=== PATIENT | male | born 1945 | race Caucasian/White ===

== ENCOUNTER 2022-07-03 07:25 | Emergency (ER) | payer MEDICARE, SELFPAY ==
[2022-07-03] VITALS (40 sets, daily range): BP systolic 79–150; BP diastolic 59–118; PULSE 53–82; RESP 20; TEMP 36.1–36.3; O2SAT 93–99; BMI 25.1
--- NOTE | 2022-07-03 07:48 | CRLHL7_ITS ---
For Patients: As a result of the Century Cures Act, medical imaging exams and procedure reports are released immediately into your electronic medical record. You may view this report before your referring provider. If you have questions, please contact your health care provider. INDICATION: Left anterior chest pain COMPARISON: None TECHNIQUE: PA and lateral views of the chest were acquired FINDINGS: TUBES AND LINES: None. HEART AND MEDIASTINUM: The heart size is normal. The mediastinal contour appears normal for patient age. LUNGS AND PLEURAL SPACES: The lungs appear normal.The pleural spaces are unremarkable. OSSEOUS STRUCTURES: Age-appropriate appearance. No acute focal finding. IMPRESSION: No evidence of active pulmonary disease. Dictated by Tapan Castillo MD @ 07/03/2022 8:13:55 AM (Electronically Signed)
--- NOTE | 2022-07-03 07:50 | ED_ITS ---
HPI - General Adult General Chief complaint: Chest Pain <Gladis Maki MD - Last Filed: 07/03/22 08:03> Stated complaint: Chest pain <Gldais Maki MD - Last Filed: 07/03/22 08:03> Time Seen by Provider: 07/03/22 07:38 <Gladis Maki MD - Last Filed: 07/03/22 08:03> Source: patient <Gladis Maki MD - Last Filed: 07/03/22 08:03> Mode of arrival: ambulatory <Gladis Maki MD - Last Filed: 07/03/22 08:03> Limitations: no limitations <Gladis Maki MD - Last Filed: 07/03/22 08:03> History of Present Illness HPI narrative: 76-year-old male with no significant past medical history presents with a 4+ hour history of chest pain to the left anterior chest, starting at rest. Does not worsen with movement. Is worsened by taking a deep breath. There is no dyspnea. Chest pain does not radiate. Feels like it is located deep in the chest. He is concerned it could be related to his heart. He has no personal history of heart disease, but has never had a stress test or significant cardiac workup. There is no nausea, no epigastric pain, no heartburn fevers or recent trauma. He has not tried any interventions, Tylenol, antacids or other steps to help with his pain. Pain is constant, has not waxed and waned. No prior hist ory of similar symptoms. He is not sure if it is related but he had a fall while working in his shop in April, tripped over a piece of wood and fell forward, his cell phone was in his left anterior chest pocket and cracked, seem to push into his ribs and cause some tenderness. Tenderness lasted about a week, he did not seek medical care. About a month later he was walking backwards in his shop in tripped over a blade on the back of a tractor, falling over it and onto the ground. He did not notice any significant injury from this accident either did not have back or rib pain as a result. On specific questioning, I asked him about an irregular heart rate as I note bigeminy on the EKG that his nurse brought me. He states that he was told that he had this over a year ago when he had a physical done by a nurse that came to his house. I assume this was for insurance purposes. He has not had this evaluated further. He said that she was not overly concerned. He is a nonsmoker. No history of diabetes, hypertension or hyperlipidemia but admits that he does not seek medical care often. No aspirin or anticoagulants. Past medical history he states is benign, no major long-term health problems. He does have a family history of cardiac disease. He denies any recent surgeries. No prescription medications, no allergies. Socially with no illicit drug use, no tobacco. ROS is notable for the chest symptoms as above, otherwise denies times 12 systems. <Gladis Maki MD - Last Filed: 07/03/22 08:03> Related Data Home medications: Home Medications Medication Instructions Recorded Confirmed No Known Home Medications 07/03/22 07/03/22 <Gladis Maki MD - Last Filed: 07/03/22 08:03> Allergies/adverse reactions: Allergies Allergy/AdvReac Type Severity Reaction Status Date / Time tetanus and diphtheria Allergy Verified 07/03/22 07:34 toxoids <Gladis Maki MD - Last Filed: 07/03/22 08:03> [facility] Social History: Social History Smoking Status: Former smoker Do you use any of these nicotine containing products: None Second hand tobacco smoke exposure: No How often do you have a drink containing alcohol: monthly or less How often do you have six or more drinks on one occasion: Never AUDIT-C Alcohol total score: 1 Non-prescribed substance use: denies use <Gladis Maki MD - Last Filed: 07/03/22 08:03> Exam Narrative: Exam Narrative: Initial EKG came back with sinus rhythm with premature atrial complexes in a bigeminy rhythm, pulse of 60. Initial troponin was elevated at 0.1. Patient did receive aspirin upon arrival and was subsequently pain free. A repeat troponin was done was 0.08. Remainder of his lab work was unremarkable. Repeat EKG was unchanged. I did speak to Dr. Wise, cardiology at [facility], who recommended we start him on heparin and transfer him for angiogram. [facility] had no beds available, therefore we reached out to [facility]. <Deysi Ibarra MD - Last Filed: 07/03/22 11:53> Const: Vital Signs, click to edit/add: Vital Signs - 24 hr 07/03/22 07:28 07/03/22 07:44 07/03/22 07:45 Temperature 97.0 F L Pulse Rate 59 L 64 Pulse Rate [Pulse Oximeter] 64 Respiratory Rate 20 Blood Pressure Blood Pressure [Le ft Upper Arm] 134/71 Pulse Oximetry 97 97 96 Oxygen Delivery Me thod Room Air 07/03/22 08:07 07/03/22 08:12 07/03/22 08:15 Temperature Pulse Rate 56 L 58 L 56 L Pulse Rate [Pulse Oximeter] Respiratory Rate Blood Pressure 150/77 H Blood Pressure [Le ft Upper Arm] Pulse Oximetry 96 96 97 Oxygen Delivery Me thod 07/03/22 08:18 07/03/22 08:30 07/03/22 08:32 Temperature Pulse Rate 61 57 L 59 L Pulse Rate [Pulse Oximeter] Respiratory Rate Blood Pressure 123/74 132/83 Blood Pressure [Le ft Upper Arm] Pulse Oximetry 98 96 94 Oxygen Delivery Me thod 07/03/22 08:33 07/03/22 08:45 07/03/22 08:47 Temperature Pulse Rate 56 L 54 L 53 L Pulse Rate [Pulse Oximeter] Respiratory Rate Blood Pressure 126/86 Blood Pressure [Le ft Upper Arm] Pulse Oximetry 97 97 97 Oxygen Delivery Me thod 07/03/22 09:00 07/03/22 09:03 07/03/22 09:15 Temperature Pulse Rate 62 58 L 60 Pulse Rate [Pulse Oximeter] Respiratory Rate Blood Pressure 131/80 Blood Pressure [Le ft Upper Arm] Pulse Oximetry 98 94 95 Oxygen Delivery Me thod 07/03/22 09:18 07/03/22 09:30 07/03/22 09:33 Temperature Pulse Rate 60 60 61 Pulse Rate [Pulse Oximeter] Respiratory Rate Blood Pressure 133/75 125/94 H Blood Pressure [Le ft Upper Arm] Pulse Oximetry 97 97 93 Oxygen Delivery Me thod 07/03/22 09:45 07/03/22 09:51 07/03/22 10:00 Temperature Pulse Rate 59 L 59 L 58 L Pulse Rate [Pulse Oximeter] Respiratory Rate Blood Pressure 117/78 Blood Pressure [Le ft Upper Arm] Pulse Oximetry 97 96 98 Oxygen Delivery Me thod 07/03/22 10:03 07/03/22 10:15 07/03/22 10:18 Temperature Pulse Rate 56 L 72 60 Pulse Rate [Pulse Oximeter] Respiratory Rate Blood Pressure 142/85 H 111/59 L Blood Pressure [Le ft Upper Arm] Pulse Oximetry 98 96 97 Oxygen Delivery Me thod 07/03/22 10:30 07/03/22 10:33 07/03/22 10:36 Temperature Pulse Rate 67 82 65 Pulse Rate [Pulse Oximeter] Respiratory Rate Blood Pressure 79/68 L 136/76 Blood Pressure [Le ft Upper Arm] Pulse Oximetry 99 93 96 Oxygen Delivery Me thod 07/03/22 10:45 07/03/22 11:00 07/03/22 11:03 Temperature Pulse Rate 59 L 61 63 Pulse Rate [Pulse Oximeter] Respiratory Rate Blood Pressure 143/70 H Blood Pressure [Le ft Upper Arm] Pulse Oximetry 97 98 99 Oxygen Delivery Me thod 07/03/22 11:15 07/03/22 11:18 07/03/22 11:30 Temperature Pulse Rate 71 61 61 Pulse Rate [Pulse Oximeter] Respiratory Rate Blood Pressure 123/70 Blood Pressure [Le ft Upper Arm] Pulse Oximetry 97 97 98 Oxygen Delivery Me thod 07/03/22 11:33 07/03/22 11:45 07/03/22 11:47 Temperature Pulse Rate 62 65 76 Pulse Rate [Pulse Oximeter] Respiratory Rate Blood Pressure 118/80 139/118 H Blood Pressure [Le ft Upper Arm] Pulse Oximetry 97 98 96 Oxygen Delivery Me thod 07/03/22 11:51 Temperature 97.4 F L Pulse Rate Pulse Rate [Pulse Oximeter] Respiratory Rate Blood Pressure Blood Pressure [Le ft Upper Arm] Pulse Oximetry Oxygen Delivery Me thod <Gladis Maki MD - Last Filed: 07/03/22 08:03> Vital Signs, click to edit/add: Vital Signs - 24 hr 07/03/22 07:28 07/03/22 07:44 07/03/22 07:45 Temperature 97.0 F L Pulse Rate 59 L 64 Pulse Rate [Pulse Oximeter] 64 Respiratory Rate 20 Blood Pressure Blood Pressure [Le ft Upper Arm] 134/71 Pulse Oximetry 97 97 96 Oxygen Delivery Me thod Room Air 07/03/22 08:07 07/03/22 08:12 07/03/22 08:15 Temperature Pulse Rate 56 L 58 L 56 L Pulse Rate [Pulse Oximeter] Respiratory Rate Blood Pressure 150/77 H Blood Pressure [Le ft Upper Arm] Pulse Oximetry 96 96 97 Oxygen Delivery Me thod 07/03/22 08:18 07/03/22 08:30 07/03/22 08:32 Temperature Pulse Rate 61 57 L 59 L Pulse Rate [Pulse Oximeter] Respiratory Rate Blood Pressure 123/74 132/83 Blood Pressure [Le ft Upper Arm] Pulse Oximetry 98 96 94 Oxygen Delivery Me thod 07/03/22 08:33 07/03/22 08:45 07/03/22 08:47 Temperature Pulse Rate 56 L 54 L 53 L Pulse Rate [Pulse Oximeter] Respiratory Rate Blood Pressure 126/86 Blood Pressure [Le ft Upper Arm] Pulse Oximetry 97 97 97 Oxygen Delivery Me thod 07/03/22 09:00 07/03/22 09:03 07/03/22 09:15 Temperature Pulse Rate 62 58 L 60 Pulse Rate [Pulse Oximeter] Respiratory Rate Blood Pressure 131/80 Blood Pressure [Le ft Upper Arm] Pulse Oximetry 98 94 95 Oxygen Delivery Me thod 07/03/22 09:18 07/03/22 09:30 07/03/22 09:33 Temperature Pulse Rate 60 60 61 Pulse Rate [Pulse Oximeter] Respiratory Rate Blood Pressure 133/75 125/94 H Blood Pressure [Le ft Upper Arm] Pulse Oximetry 97 97 93 Oxygen Delivery Me thod 07/03/22 09:45 07/03/22 09:51 07/03/22 10:00 Temperature Pulse Rate 59 L 59 L 58 L Pulse Rate [Pulse Oximeter] Respiratory Rate Blood Pressure 117/78 Blood Pressure [Le ft Upper Arm] Pulse Oximetry 97 96 98 Oxygen Delivery Me thod 07/03/22 10:03 07/03/22 10:15 07/03/22 10:18 Temperature Pulse Rate 56 L 72 60 Pulse Rate [Pulse Oximeter] Respiratory Rate Blood Pressure 142/85 H 111/59 L Blood Pressure [Le ft Upper Arm] Pulse Oximetry 98 96 97 Oxygen Delivery Me thod 07/03/22 10:30 07/03/22 10:33 07/03/22 10:36 Temperature Pulse Rate 67 82 65 Pulse Rate [Pulse Oximeter] Respiratory Rate Blood Pressure 79/68 L 136/76 Blood Pressure [Le ft Upper Arm] Pulse Oximetry 99 93 96 Oxygen Delivery Me thod 07/03/22 10:45 07/03/22 11:00 07/03/22 11:03 Temperature Pulse Rate 59 L 61 63 Pulse Rate [Pulse Oximeter] Respiratory Rate Blood Pressure 143/70 H Blood Pressure [Le ft Upper Arm] Pulse Oximetry 97 98 99 Oxygen Delivery Me thod 07/03/22 11:15 07/03/22 11:18 07/03/22 11:30 Temperature Pulse Rate 71 61 61 Pulse Rate [Pulse Oximeter] Respiratory Rate Blood Pressure 123/70 Blood Pressure [Le ft Upper Arm] Pulse Oximetry 97 97 98 Oxygen Delivery Me thod 07/03/22 11:33 07/03/22 11:45 07/03/22 11:47 Temperature Pulse Rate 62 65 76 Pulse Rate [Pulse Oximeter] Respiratory Rate Blood Pressure 118/80 139/118 H Blood Pressure [Le ft Upper Arm] Pulse Oximetry 97 98 96 Oxygen Delivery Me thod 07/03/22 11:51 Temperature 97.4 F L Pulse Rate Pulse Rate [Pulse Oximeter] Respiratory Rate Blood Pressure Blood Pressure [Le ft Upper Arm] Pulse Oximetry Oxygen Delivery Me thod <Deysi Ibarra MD - Last Filed: 07/03/22 11:53> Documenting provider has reviewed patient's vital signs: yes <Gladis Maki MD - Last Filed: 07/03/22 08:03> Common normals: no apparent distress and alert <Gladis Maki MD - Last Filed: 07/03/22 08:03> General appearance: cooperative, comfortable and well kempt <Gladis Maki MD - Last Filed: 07/03/22 08:03> HENMT: Common normals: normocephalic and head/scalp atraumatic <Gladis Maki MD - Last Filed: 07/03/22 08:03> Head and scalp: normocephalic and atraumatic <Gladis Maki MD - Last Filed: 07/03/22 08:03> Face and sinus: normal facial exam <MD Soraya Vidales Last Filed: 07/03/22 08:03> Mouth: oral and palatal mucosa normal <MD Soraya Vidales Last Filed: 07/03/22 08:03> Throat: posterior oropharynx normal <MD Soraya Vidales Last Filed: 07/03/22 08:03> Eye: Common normals: EOMs intact bilaterally <MD Soraya Vidales Last Filed: 07/03/22 08:03> General eye: normal appearance of both eyes <MD Soraya Vidales Last Filed: 07/03/22 08:03> Neck & C-Spine: Common normals: full ROM and no lymphadenopathy <MD Soraya Vidales Last Filed: 07/03/22 08:03> Chest: Common normals: inspection of chest normal and palpation of chest normal (Cannot reproduce tenderness) <MD Soraya Vidales Last Filed: 07/03/22 08:03> Resp: Common normals: normal respiratory effort, no use of accessory muscles and clear to auscultation bilaterally <MD Soraya Vidales Last Filed: 07/03/22 08:03> Effort & inspection: able to speak in complete sentences <MD Soraya Vidales Last Filed: 07/03/22 08:03> Auscultation: clear to auscultation bilaterally <MD Soraya Vidales Last Filed: 07/03/22 08:03> Cardio: Common normals: S1 normal heart sound, S2 normal heart sound and no murmurs <MD Soraya Vidales Last Filed: 07/03/22 08:03> Heart sounds: S1 normal and S2 normal <MD Soraya Vidales Last Filed: 07/03/22 08:03> Other: Bigeminy on auscultation, rate is around 60. <MD Soraya Vidales Last Filed: 07/03/22 08:03> GI: Common normals: Normal to inspection, nondistended, normoactive bowel sounds present, soft to palpation, non-tender, no hepatosplenomegaly and no masses <MD Soraya Vidales Last Filed: 07/03/22 08:03> Palpation: soft and no hepatosplenomegaly <MD Soraya Vidales Last Filed: 07/03/22 08:03> : Common normals: no CVA tenderness <MD Soraya Vidales Last Filed: 07/03/22 08:03> Bladder/kidney exam: no CVA tenderness <MD Soraya Vidales Last Filed: 07/03/22 08:03> Back & Pelvis: Common normals: no CVA tenderness and thoracic and lumbar spine normal to inspection <MD Soraya Vidales Last Filed: 07/03/22 08:03> Extremity: Common normals: normal to inspection, normal capillary refill and no pedal edema <MD Soraya Vidales Last Filed: 07/03/22 08:03> Neuro: Common normals: moves all extremities <MD Soraya Vidales Last Filed: 07/03/22 08:03> Sensorium/orientation: alert <MD Soraya Vidales Last Filed: 07/03/22 08:03> Speech: speech normal <MD Soraya Vidales Last Filed: 07/03/22 08:03> Psych: Appearance: well kempt <MD Soraya Vidales Last Filed: 07/03/22 08:03> Attitude: engaged <MD Soraya Vidales Last Filed: 07/03/22 08:03> Mood and affect: euthymic mood <MD Soraya Vidales Last Filed: 07/03/22 08:03> Insight: insight good <MD Soraya Vidales Last Filed: 07/03/22 08:03> Judgement: judgment good <MD Soraya Vidales Last Filed: 07/03/22 08:03> Skin: Common normals: no rashes or lesions noted <MD Soraya Vidales Last Filed: 07/03/22 08:03> General skin exam: no rashes or lesions noted <Gladis Maki MD - Last Filed: 07/03/22 08:03> Course Course Hospital Course: Initial EKG, read by me, shows normal sinus rhythm and a bigeminy pattern with a pulse of 60. His initial troponin was elevated at 0.10. Sublingual nitro was not initiated given that shortly after arrival patient became asymptomatic and remain without chest pain. His repeat troponin was better at 0.08, however still elevated. Because of this I did speak to Dr. Wise, [employer] at [facility], who recommended we start the patient on heparin and transfer him for further management. There were no beds available lab [facility] so patient will be transferred to [facility] where Dr. Madden hospitalist at [place], except to the patient for transfer. Remainder of his lab work was unremarkable. His repeat EKG was unchanged. Chest x-ray, read by me, did not show any acute pathology. Patient remained asymptomatic and hemodynamically stable while here. 3rd troponin unchanged. <Gladis Maki MD - Last Filed: 07/03/22 08:03> Vital Signs Vital signs: Initial Vital Signs Temperature 97.0 F L 07/03/22 07:28 Temperature Source Temporal Artery Scan 07/03/22 07:28 Pulse Rate 64 07/03/22 07:28 Pulse Rhythm Irregular 07/03/22 07:28 Respiratory Rate 20 07/03/22 07:28 Blood Pressure 134/71 07/03/22 07:28 Blood Pressure Mean 92 07/03/22 07:28 Pulse Oximetry 97 07/03/22 07:28 Oxygen Delivery Method Room Air 07/03/22 07:28 Vital Signs Temperature 97.0 F L 07/03/22 07:28 Pulse Rate 64 07/03/22 07:28 Respiratory Rate 20 07/03/22 07:28 Blood Pressure 134/71 07/03/22 07:28 Pulse Oximetry 97 07/03/22 07:28 Oxygen Delivery Method Room Air 07/03/22 07:28 Temperature 97.4 F L 07/03/22 11:51 Pulse Rate 76 07/03/22 11:47 Respiratory Rate 20 07/03/22 07:28 Blood Pressure 139/118 H 07/03/22 11:47 Pulse Oximetry 96 07/03/22 11:47 Oxygen Delivery Method Room Air 07/03/22 07:28 <Gladis Maki MD - Last Filed: 07/03/22 08:03> Initial Vital Signs Temperature 97.0 F L 07/03/22 07:28 Temperature Source Temporal Artery Scan 07/03/22 07:28 Pulse Rate 64 07/03/22 07:28 Pulse Rhythm Irregular 07/03/22 07:28 Respiratory Rate 20 07/03/22 07:28 Blood Pressure 134/71 07/03/22 07:28 Blood Pressure Mean 92 07/03/22 07:28 Pulse Oximetry 97 07/03/22 07:28 Oxygen Delivery Method Room Air 07/03/22 07:28 Vital Signs Temperature 97.0 F L 07/03/22 07:28 Pulse Rate 64 07/03/22 07:28 Respiratory Rate 20 07/03/22 07:28 Blood Pressure 134/71 07/03/22 07:28 Pulse Oximetry 97 07/03/22 07:28 Oxygen Delivery Method Room Air 07/03/22 07:28 Temperature 97.4 F L 07/03/22 11:51 Pulse Rate 76 07/03/22 11:47 Respiratory Rate 20 07/03/22 07:28 Blood Pressure 139/118 H 07/03/22 11:47 Pulse Oximetry 96 07/03/22 11:47 Oxygen Delivery Method Room Air 07/03/22 07:28 <Deysi Ibarra MD - Last Filed: 07/03/22 11:53> Medical Decision Making MDM Narrative Medical decision making narrative: Uncertain of etiology. Differential diagnosis including coronary artery disease, structural heart disease, arrhythmia, pleurisy, pneumonia, reflux, musculoskeletal etiology among others. Patient came just a couple of minutes before shift change but I was concerned when I saw the bigeminy and elected to start the workup. I will be handing the patient over to Dr. Ibarra. EKG, chest x-ray, all basic labs ordered including troponin and point of care troponin, would recommend serial troponin as well. Will give aspirin 325 mg p.o. x1 and a trial dose of nitroglycerin to assess clinical response. <Gladis Maki MD - Last Filed: 07/03/22 08:03> Uncertain of etiology. Differential diagnosis including coronary artery disease, structural heart disease, arrhythmia, pleurisy, pneumonia, reflux, musculoskeletal etiology among others. Patient came just a couple of minutes b efore shift change but I was concerned when I saw the bigeminy and elected to start the workup. I will be handing the patient over to Dr. Ibarra. EKG, chest x-ray, all basic labs ordered including troponin and point of care troponin, would recommend serial troponin as well. Will give aspirin 325 mg p.o. x1 and a trial dose of nitroglycerin to assess clinical response. Non ST elevation PA. patient will be transferred to [place] for further management. <Deysi Ibarra MD - Last Filed: 07/03/22 11:53> Lab Data Lab results reviewed: Yes I reviewed the patient's lab results <Deysi Ibarra MD - Last Filed: 07/03/22 11:53> Labs: Lab Results 07/03/22 07/03/22 07/03/22 Range/Units 07:40 09:18 10:27 WBC 4.90 (4.50-11.00) K/uL RBC 4.40 (4.30-5.90) m/uL Hgb 14.6 (13.5-17.5) gm/dL Hct 43.0 (37.0-53.0) % MCV 98 (80-100) fL MCH 33 (26-34) pg MCHC 34 (32-36) gm/dL RDW Coeff of Rosalina 12.8 (11.5-15.5) % Plt Count 194 (140-440) K/uL Neut % (Auto) 49.0 (42.0-72.0) % Lymph % (Auto) 30.2 (20-44) % [place] % (Auto) 14.7 H (0.0-11.0) % Eos % (Auto) 5.3 (0.0-7.0) % Baso % (Auto) 0.6 (0.0-3.0) % Neut # (Auto) 2.40 (1.7-7.0) K/uL Lymph # (Auto) 1.48 (0.90-2.90) K/uL [place] # (Auto) 0.70 (0.00-0.90) K/UL Eos # (Auto) 0.26 (0.00-0.50) K/uL Baso # (Auto) 0.03 (0.00-0.30) K/uL INR 1.11 H (0.91-1.10) APTT 31 (23-33) Seconds D-Dimer Quant (PE/DVT) 0.39 (0.00-0.50) ug/ml Sodium 138 (135-149) mmol/L Potassium 4.9 (3.6-5.1) mmol/L Chloride 109 (96-114) mmol/L Carbon Dioxide 24 (20-32) mmol/L BUN 18 (7-30) mg/dL Creatinine 0.8 (0.5-1.5) mg/dL Estimated Creat Clear 66.82 Estimated GFR 91 ml/min Glucose 102 (60-115) mg/dL Calcium 8.5 (8.4-10.6) mg/dL Total Bilirubin 0.5 (0.1-1.5) mg/dL AST 34 (12-35) U/L ALT 38 (4-50) U/L Alkaline Phosphatase 41 (40-150) U/L Troponin I 0.10 H* (0.01-0.04) ng/mL C-Reactive Protein 0.8 (0.5-1.0) mg/dL NT-Pro-B Natriuret Pep 1020 pg/mL Total Protein 7.0 (6.0-8.3) g/dL Albumin 3.9 (3.3-5.0) g/dL SARS-CoV-2 (PCR) Negative SARS-CoV-2 (Negative) Influenza Type A (PCR) Negative PCR FLU A (Negative) Influenza Type B (PCR) Negative PCR FLU B (Negative) POC Troponin I 0.10 H 0.08 H (0.01-0.04) ng/ml 07/03/22 Range/Units 10:48 WBC (4.50-11.00) K/uL RBC (4.30-5.90) m/uL Hgb (13.5-17.5) gm/dL Hct (37.0-53.0) % MCV (80-100) fL MCH (26-34) pg MCHC (32-36) gm/dL RDW Coeff of Rosalina (11.5-15.5) % Plt Count (140-440) K/uL Neut % (Auto) (42.0-72.0) % Lymph % (Auto) (20-44) % [place] % (Auto) (0.0-11.0) % Eos % (Auto) (0.0-7.0) % Baso % (Auto) (0.0-3.0) % Neut # (Auto) (1.7-7.0) K/uL Lymph # (Auto) (0.90-2.90) K/uL [place] # (Auto) (0.00-0.90) K/UL Eos # (Auto) (0.00-0.50) K/uL Baso # (Auto) (0.00-0.30) K/uL INR (0.91-1.10) APTT (23-33) Seconds D-Dimer Quant (PE/DVT) (0.00-0.50) ug/ml Sodium (135-149) mmol/L Potassium (3.6-5.1) mmol/L Chloride (96-114) mmol/L Carbon Dioxide (20-32) mmol/L BUN (7-30) mg/dL Creatinine (0.5-1.5) mg/dL Estimated Creat Clear Estimated GFR ml/min Glucose (60-115) mg/dL Calcium (8.4-10.6) mg/dL Total Bilirubin (0.1-1.5) mg/dL AST (12-35) U/L ALT (4-50) U/L Alkaline Phosphatase (40-150) U/L Troponin I (0.01-0.04) ng/mL C-Reactive Protein (0.5-1.0) mg/dL NT-Pro-B Natriuret Pep pg/mL Total Protein (6.0-8.3) g/dL Albumin (3.3-5.0) g/dL SARS-CoV-2 (PCR) (Negative) Influenza Type A (PCR) (Negative) Influenza Type B (PCR) (Negative) POC Troponin I 0.08 H (0.01-0.04) ng/ml <Gladis Maki MD - Last Filed: 07/03/22 08:03> Lab Results 07/03/22 07/03/22 07/03/22 Range/Units 07:40 09:18 10:27 WBC 4.90 (4.50-11.00) K/uL RBC 4.40 (4.30-5.90) m/uL Hgb 14.6 (13.5-17.5) gm/dL Hct 43.0 (37.0-53.0) % MCV 98 (80-100) fL MCH 33 (26-34) pg MCHC 34 (32-36) gm/dL RDW Coeff of Rosalina 12.8 (11.5-15.5) % Plt Count 194 (140-440) K/uL Neut % (Auto) 49.0 (42.0-72.0) % Lymph % (Auto) 30.2 (20-44) % [place] % (Auto) 14.7 H (0.0-11.0) % Eos % (Auto) 5.3 (0.0-7.0) % Baso % (Auto) 0.6 (0.0-3.0) % Neut # (Auto) 2.40 (1.7-7.0) K/uL Lymph # (Auto) 1.48 (0.90-2.90) K/uL [place] # (Auto) 0.70 (0.00-0.90) K/UL Eos # (Auto) 0.26 (0.00-0.50) K/uL Baso # (Auto) 0.03 (0.00-0.30) K/uL INR 1.11 H (0.91-1.10) APTT 31 (23-33) Seconds D-Dimer Quant (PE/DVT) 0.39 (0.00-0.50) ug/ml Sodium 138 (135-149) mmol/L Potassium 4.9 (3.6-5.1) mmol/L Chloride 109 (96-114) mmol/L Carbon Dioxide 24 (20-32) mmol/L BUN 18 (7-30) mg/dL Creatinine 0.8 (0.5-1.5) mg/dL Estimated Creat Clear 66.82 Estimated GFR 91 ml/min Glucose 102 (60-115) mg/dL Calcium 8.5 (8.4-10.6) mg/dL Total Bilirubin 0.5 (0.1-1.5) mg/dL AST 34 (12-35) U/L ALT 38 (4-50) U/L Alkaline Phosphatase 41 (40-150) U/L Troponin I 0.10 H* (0.01-0.04) ng/mL C-Reactive Protein 0.8 (0.5-1.0) mg/dL NT-Pro-B Natriuret Pep 1020 pg/mL Total Protein 7.0 (6.0-8.3) g/dL Albumin 3.9 (3.3-5.0) g/dL SARS-CoV-2 (PCR) Negative SARS-CoV-2 (Negative) Influenza Type A (PCR) Negative PCR FLU A (Negative) Influenza Type B (PCR) Negative PCR FLU B (Negative) POC Troponin I 0.10 H 0.08 H (0.01-0.04) ng/ml 07/03/22 Range/Units 10:48 WBC (4.50-11.00) K/uL RBC (4.30-5.90) m/uL Hgb (13.5-17.5) gm/dL Hct (37.0-53.0) % MCV (80-100) fL MCH (26-34) pg MCHC (32-36) gm/dL RDW Coeff of Rosalina (11.5-15.5) % Plt Count (140-440) K/uL Neut % (Auto) (42.0-72.0) % Lymph % (Auto) (20-44) % [place] % (Auto) (0.0-11.0) % Eos % (Auto) (0.0-7.0) % Baso % (Auto) (0.0-3.0) % Neut # (Auto) (1.7-7.0) K/uL Lymph # (Auto) (0.90-2.90) K/uL [place] # (Auto) (0.00-0.90) K/UL Eos # (Auto) (0.00-0.50) K/uL Baso # (Auto) (0.00-0.30) K/uL INR (0.91-1.10) APTT (23-33) Seconds D-Dimer Quant (PE/DVT) (0.00-0.50) ug/ml Sodium (135-149) mmol/L Potassium (3.6-5.1) mmol/L Chloride (96-114) mmol/L Carbon Dioxide (20-32) mmol/L BUN (7-30) mg/dL Creatinine (0.5-1.5) mg/dL Estimated Creat Clear Estimated GFR ml/min Glucose (60-115) mg/dL Calcium (8.4-10.6) mg/dL Total Bilirubin (0.1-1.5) mg/dL AST (12-35) U/L ALT (4-50) U/L Alkaline Phosphatase (40-150) U/L Troponin I (0.01-0.04) ng/mL C-Reactive Protein (0.5-1.0) mg/dL NT-Pro-B Natriuret Pep pg/mL Total Protein (6.0-8.3) g/dL Albumin (3.3-5.0) g/dL SARS-CoV-2 (PCR) (Negative) Influenza Type A (PCR) (Negative) Influenza Type B (PCR) (Negative) POC Troponin I 0.08 H (0.01-0.04) ng/ml <Deysi Ibarra MD - Last Filed: 07/03/22 11:53> Imaging Data Chest x-ray: Attestation: I have reviewed the pertinent imaging results. <Deysi Ibarra MD - Last Filed: 07/03/22 11:53> Radiologist's impression: PA and lateral views of the chest were acquired FINDINGS: TUBES AND LINES: None. HEART AND MEDIASTINUM: The heart size is normal. The mediastinal contour appears normal for patient age. LUNGS AND PLEURAL SPACES: The lungs appear normal.The pleural spaces are unremarkable. OSSEOUS STRUCTURES: Age-appropriate appearance. No acute focal finding. IMPRESSION: No evidence of active pulmonary disease. <Deysi Ibarra MD - Last Filed: 07/03/22 11:53> ECG Data Attestation: I personally reviewed and interpreted this ECG as follows: <Gladis Maki MD - Last Filed: 07/03/22 08:03> Prior ECG tracings: not available for review <Gladis Maki MD - Last Filed: 07/03/22 08:03> Interpretation: Bigeminy pattern rate of 60. Slightly unusual axis but with no obvious ischemic change, all T-waves are appropriately upright. <Gladis Maki MD - Last Filed: 07/03/22 08:03> Discharge Plan Discharge Clinical Impression: Non-ST elevated myocardial infarction <Gladis Maki MD - Last Filed: 07/03/22 08:03> Patient Disposition: Xfer SNF <Gladis Maki MD - Last Filed: 07/03/22 08:03> Discharge Location: [facility] <Gladis Maki MD - Last Filed: 07/03/22 08:03> Condition: Stable <Gladis Maki MD - Last Filed: 07/03/22 08:03> Prescriptions: No Action No Known Home Medications <Gladis Maki MD - Last Filed: 07/03/22 08:03> Stand Alone Forms: MyHealth Info Instructions <Gladis Maki MD - Last Filed: 07/03/22 08:03>
[2022-07-03] MEDS: ASPIRIN 81 MG TAB.CHEW 324 MG PO (08:01)
[2022-07-03 08:04] LABS: Basophils Absolute Auto 0.03 K/uL (0.00-0.30); Basophils Percent Auto 0.6 % (0.0-3.0); Eosinophils Absolute Auto 0.26 K/uL (0.00-0.50); Eosinophils Percent Auto 5.3 % (0.0-7.0); Hemoglobin* 14.6 gm/dL (13.5-17.5); Immature Granulocytes Abs Auto 0.01 K/uL (0.00-0.30); Immature Granulocytes Pct Auto 0.2 %; Lymphocytes Absolute Auto 1.48 K/uL (0.90-2.90); Lymphocytes Percent Auto 30.2 % (20-44); Mean Corpuscular HGB Conc 34 gm/dL (32-36); Mean Corpuscular Hemoglobin 33 pg (26-34); Mean Corpuscular Volume 98 fL (80-100); Monocytes Percent Auto 14.7 % (0.0-11.0); Platelet Count* 194 K/uL (140-440); RDW Coefficient of Variation % 12.8 % (11.5-15.5)
[2022-07-03 08:05] LABS: Slide Review Reflex No
[2022-07-03 08:11] LABS: Chloride* 109 mmol/L (96-114)
[2022-07-03 08:12] LABS: Albumin* 3.9 g/dL (3.3-5.0); Sodium* 138 mmol/L (135-149)
[2022-07-03 08:13] LABS: Potassium* 4.9 mmol/L (3.6-5.1)
[2022-07-03 08:15] LABS: Bilirubin Total* 0.5 mg/dL (0.1-1.5); Creatinine* 0.8 mg/dL (0.5-1.5); Est. Creatinine Clearance* 66.82; Estimated Glomerular Filt Rate 91 ml/min
[2022-07-03 08:16] LABS: Alanine Aminotransferase* 38 U/L (4-50); Alkaline Phosphatase* 41 U/L (40-150); Aspartate Amino Transferase* 34 U/L (12-35); Blood Urea Nitrogen* 18 mg/dL (7-30); Calcium* 8.5 mg/dL (8.4-10.6); Carbon Dioxide* 24 mmol/L (20-32); D Dimer Quantitative* 0.39 ug/ml (0.00-0.50); Glucose* 102 mg/dL (60-115)
[2022-07-03 08:18] LABS: C Reactive Protein* 0.8 mg/dL (0.5-1.0)
--- NOTE | 2022-07-03 08:20 | PC.NURSE ---
did additional ekg as monitor showed some elevation after coming back from CT, EKG done and shows frequent PAC's, given to Dr Ibarra for review,will hold on nitro for now, pt denies pain at this time
[2022-07-03 08:28] LABS: NT Pro B Type NatriureticPept* 1020 pg/mL
[2022-07-03 09:32] LABS: Troponin, Point-of-Care* 0.08 ng/ml (0.01-0.04)
--- NOTE | 2022-07-03 09:33 | PC.NURSE ---
to room to do second ekg and trop, pt denies pain, states, I tried to see if I could get it but its not there, his pain is only when he takes a deep breath but even with that motion he is unable to produce the pain at this time
--- NOTE | 2022-07-03 10:10 | PC.NURSE ---
Dr Ibarra to room and out, pt resting, denies pain
[2022-07-03] MEDS: HEPARIN 5,000 UNIT/0.5 ML INJ 4000 UNIT IVP (10:33)
[2022-07-03] MEDS: HEPARIN 25,000 UNIT/500 ML BAG 20 UNIT IV (10:34)
[2022-07-03 10:42] LABS: INR 1.11 (0.91-1.10)
[2022-07-03 10:43] LABS: Partial Thromboplastin Time* 31 Seconds (23-33)
[2022-07-03 11:03] LABS: Troponin, Point-of-Care* 0.08 ng/ml (0.01-0.04)
[2022-07-03 11:11] LABS: PCR FLU A Negative PCR FLU A (Negative); PCR FLU B Negative PCR FLU B (Negative)
--- NOTE | 2022-07-03 11:42 | PC.NURSE ---
report given to Ade at [facility] [phone], dispatch called
[2022-07-03 11:50] LABS: SARS PCR* Negative SARS-CoV-2 (Negative)
== END 2022-07-03 12:22 | disposition short-term general hospital (02) ==
PROVIDERS: Family Medicine; Emergency Provider Family Medicine; PCP Family Medicine
DX: I21.4 Non-ST elevation (NSTEMI) myocardial infarction (principal)
CPT/HCPCS: 36415; 71046; 80053; 83880; 84484; 85025; 85379; 85610; 85730; 86140; 87631; 93005; 99285; 99291; A9270; J1644

== ENCOUNTER 2022-07-03 11:56 | Outpatient (CLI) | payer MEDICARE, SELFPAY | END 2022-07-03 11:57 | disposition home or self-care (01) | LOC: AMB 07-06 10:42 | PROVIDERS: PCP Family Medicine; Visit Provider Family Medicine | DX: R07.89 Other chest pain (principal); I49.9 Cardiac arrhythmia, unspecified | CPT/HCPCS: A0425; A0434 ==

== ENCOUNTER 2024-10-14 02:26 | Emergency (ER) | payer MEDICARE, SELFPAY ==
[2024-10-14] VITALS (8 sets, daily range): BP systolic 145–165; BP diastolic 89–114; PULSE 89–98; RESP 12–20; TEMP 36.8; O2SAT 95–99; BMI 24.7
--- OUTSIDE RECORDS SUMMARY | 2024-10-14 02:28 | XMS_ITS | Clinical Summary ---
Author Organization [facility] Address [address] [place] [address] Care Team Providers Care Cupola Melting Supervisor Name Role Phone Needs Pcp, Assignment Primary Care Provider [phone] Source Comments You are receiving this document as you are listed as the primary care provider,follow-up provider, or the patient has been referred to you for consultation.This is in compliance with the Medicare and[facility] EHR Incentive Program,which states Providers who transition their patient to another setting of careor provider of care or refers their patient to another provider of care shouldprovide summary care record for each transition of care or referral. [place] Allergies Active Allergy Reactions Criticality Noted Date Comments Atorvastatin Other, see comments 05/02/2013 dizzy Tetanus Toxoids Confusion 06/07/2016 horse serum kind- has had modern tetanus injection without problem Medications acetaminophen (TYLENOL) 500 MG tablet Take 1 Tablet by mouth every 4 hours as needed for Pain (Mild Pain). Maximum acetaminophen dose is 4000 mg in 24 hours 100 Tablet 11 9 Active Additional Information Patient not taking.Reported on 07/27/2018 ibuprofen (MOTRIN) 200 MG tablet Take 2 Tablets by mouth every 6 hours as needed for Pain (Mild Pain). This may be safely mixed with the prescription pain medications (oxycodone, hydrocodone or tramadol.) This may also be safely mixed with acetaminophen. 100 Tablet 9 Active Additional Information Patient not taking.Reported on 07/27/2018 Active Problems Problem Noted Date Diagnosed Date Carpal tunnel syndrome of right wrist 03/18/2015 Complete tear of left rotator cuff 02/19/2015 Incomplete tear of right rotator cuff 02/19/2015 Numbness and tingling in right hand 02/19/2015 Bursitis of right shoulder 01/27/2015 Rotator cuff syndrome of left shoulder 5 Vitamin D deficiency 01/10/2014 Impaired fasting glucose 05/02/2013 Mixed hyperlipidemia 05/02/2013 Gluten intolerance 06/05/2008 Social History Tobacco Use Types Packs/Day Years Used Date Smoking Tobacco: Former Smokeless Tobacco: Never Alcohol Use Standard Drinks/Week Comments Yes 0 (1 standard drink = 0.6 oz pur e alcohol) couple drinks of margarito a week Sex and Gender Information Value Date Recorded Sex Assigned at Not on file Legal Sex Male 3:40 PM CDT Gender Identity Not on file Sexual Orientation Not on file Last Filed Vital Signs Vital Sign Reading Time Taken Comments Blood Pressure 139/64 03/18/2021 7:46 AM PSYCHODRAMATIST Pulse 45 03/18/2021 7:46 AM PSYCHODRAMATIST Temperature 36.4 C (97.6 F) 07/13/2018 2:11 PM CDT Respiratory Rate 16 07/13/2018 2:11 PM CDT Oxygen Saturation 98% 07/13/2018 2:11 PM CDT Inhaled Oxygen Concentration - - Weight 95.3 kg (210 lb) 02/19/2021 9:20 AM PSYCHODRAMATIST Height 182.9 cm (6') 02/19/2021 9:20 AM PSYCHODRAMATIST Body Mass Index 28.48 02/19/2021 9:20 AM PSYCHODRAMATIST Plan of Treatment Health Maintenance Due Date Last Done Comments Prediabetes: HGBA1C 1945 DTaP/Tdap/Td Vaccine (1 - Tdap) 06/06/2008 06/05/2008 Zoster/Shingles Vaccine (2 o f 3) 08/15/2011 06/20/2011 Pneumococcal Vaccine 50+ Yrs (2 of 2 - PCV) 06/19/2012 06/20/2011 RSV Vaccine (1 - 1-dose 75+ series) 07/17/2018 COVID-19 Vaccine ( - 2023-2 5 season) 2023 02/11/2021, 07/08/2020, 06/10/2020 Medicare Annual Wellness Visit 03/13/2024 Influenza Vaccine (#1) 2024 HepA Vaccine Aged Out No longer eligi ble based on patient's age to complete this topic HepB Vaccine Aged Out No longer eligi ble based on patient's age to complete this topic Hib Vaccine Aged Out No longer eligi ble based on patient's age to complete this topic IPV (Polio) Vaccine Aged Out No longe r eligible based on patient's age to complete this topic MCV4 Vaccine Aged Out No longer eligi ble based on patient's age to complete this topic Meningococcal B Vaccine Aged Out No l onger eligible based on patient's age to complete this topic Insurance [facility] MEDICARE ADVANTAGE [facility] MEDICARE ADVANTAGE Care Teams Cupola Melting Supervisor Relationship Specialty Start Date End Date Needs Pcp, [place] [address] PCP - General 06/29/21
--- OUTSIDE RECORDS SUMMARY | 2024-10-14 02:28 | XMS_ITS | Clinical Summary ---
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 90 Tablet 3 06/18/2024 Active Active Problems Problem Noted Date Diagnosed Date Spinal stenosis, lumbar everardo on, with neurogenic claudication 11/17/2022 Chest pain 07/03/2022 Osteopenia 02/2021 Hip FRAX=3.2% 02/10/2021 Overview (03/12/2021): hip frax=3.2% Carpal tunnel syndrome of right wrist 03/18/2015 Complete tear of left rotator cuff 02/19/2015 Incomplete tear of right rotator cuff 02/19/2015 Numbness and tingling in right hand 02/19/2015 Bursitis of right shoulder 01/27/2015 Rotator cuff syndrome of lef t shoulder, likely recurrent tear 01/27/2015 Vitamin D deficiency 01/10/2014 Mixed hyperlipidemia 05/02/2013 Overview (06/19/2024): Previously on Atorvastatin (Lipitor). June 2024: Cardiology started on Rosuvastatin (Crestor) 20mg. Impaired fasting glucose 05/02/2013 Gluten intolerance 06/05/2008 Neck mass Abnormal stress test Resolved Problems Problem Noted Date Diagnosed Date Resolved Date Rotator cuff tear 06/05/2008 06/20/2011 Immunizations Immunization Administration Dates Next Due COVID-19 vaccine (Moderna 10 0mcg/0.5mL) PF, MDV 02/11/2021,07/08/2020,06/10/2020 Pneumococcal Poly,23-Valent (Pneumovax) 06/20/19 12 Td, Preservative Free (age >= 7 Years) 9 Zoster (Zostavax-ZVL, live) 06/20/2011 Family History Medical History Relation Name Comments Diabetes type II Brother 3 Heart Disease Brother 4 Benny Heart Disease Father Emir after 85, d93 Stroke Mother Varian d91 Cancer-colon Neg. 1 Cancer-prostate Neg. 2 Diabetes Neg. 3 Cancer Sister 1 Brain Anesthesia Problem No Family History Blood Disease No Family History Relation Name Status Comments Brother 1 Sean (Age 25) Truck acci dent Brother 2 Uri (Age 60s) unknown C OD, prior serious MVA in his 20s Brother 3 Alive Brother 4 Benny Alive Father Emir (Age 92) Kidney naila lure Mother Micaela (Age 93) Dementia Neg. 1 Neg. 2 Neg. 3 Sister 1 (Age 78) Brain canc er Sister 2 Alive Social History Tobacco Use Types Packs/Day Years Used Date Smoking Tobacco: Former Cigarettes Q uit: 03/13/1967 Smokeless Tobacco: Never Tobacco Cessation:Counseling Given: Yes Alcohol Use Standard Drinks/Week Comments Yes 1 (1 standard drink = 0.6 oz pur e alcohol) PHQ-2 Answer Date Recorded PHQ-2 TOTAL SCORE 0 04/19/2024 Social Connections Answer Date Recorded Do you often feel lonely or isolated from those around you? 0 04/19/2024 Financial Resource Strain Answer Date R ecorded Difficulty of Paying Living Expenses 3 04/19/2024 Difficulty of Paying Living Expenses Not on file 04/19/2024 Food Insecurity Answer Date Recorded Do you worry your food will run out before you are able to buy more? 1 04/19/2024 Transportation Needs Answer Date Record ed Does lack of transportation keep you from medica l appointments? 1 04/19/2024 Does lack of transportation keep you from work, meetings or getting things that you need? 1 04/19/2024 Housing Stability Answer Date Recorded What is your housing situation today? 1 04/19/2024 Utilities Answer Date Recorded Do you have trouble paying f or utilities (for example, heat, electricity, water, phone)? 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 Not on file Not on file Obstetrics History Last Filed Vital Signs Vital Sign Reading Time Taken Comments Blood Pressure 123/80 06/18/2024 3:34 PM CDT Pulse 51 06/18/2024 3:34 PM CDT Temperature 36.6 C (97.8 F) 11/17/2022 3:40 PM CDT Respiratory Rate 16 11/17/2022 4:23 PM CDT Oxygen Saturation 97% 06/18/2024 3:34 PM CDT Inhaled Oxygen Concentration - - Weight 84.6 kg (186 lb 6.4 oz) 06/18/2024 3:34 P M CDT Height 180.9 cm (5' 11.22) 04/19/2024 7:[address] Body Mass Index 25.84 04/19/2024 7:53 AM TECHNICAL PROJECT LEAD Plan of Treatment Health Maintenance Due Date Last Done Comments Zoster (shingles) series for age 50+ (2 of 3) 08/15/2011 06/20/2011 Pneumococcal series for age 50+ (2 of 2 - PCV) 06/19/2012 06/20/2011 Tetanus booster 06/05/2018 06/05/2008 RSV vaccine for adults or (1 - 1-dose 75+ series) 07/17/2018 COVID-19 vaccine series ( season) 2023 02/11/2021, 07/08/2020, 06/10/2020 Influenza Vaccine (#1) 2024 BMI (ht and wt on same day) for age 18+ 04/19/2025 04/19/2024, 11/16/2022, 08/12/2022, Additional history exists Depression screening for age 12+ 04/19/2025 04/19/2024, 07/13/2021, 07/12/2021 Medicare Wellness for age 65+ 04/20/2025 04/19/2024, 07/12/2021, 06/20/2011 Hepatitis B series for 19+ Aged Out N o longer eligible based on patient's age to complete this topic Medical Devices Implanted Type Area Benefits Consulting Analyst Device Identifier Shelf Expiration Date Model / Serial / Lot [id number] - [id number] Implanted:Qty: 4 on 01/26/2005 at [facility] Bone Implants Left: Shoulder [employer] AR-7200# / / [id number] - [id number] Implanted:Qty: 2 on 01/26/2005 at [facility] Left: Shoulder AR-1928SF -2 / / [id number] Description:Arthrex 5.4mm co rkscrew with two #2 fiberwire [id number] - [id number] Implanted:Qty: 2 on 01/26/2005 at [facility] Left: Shoulder [id number] / / [id number] Description:Mitek Panalok 3. 5 absorbable anchor, golden #[id number] Punch Bio Corkscrew 4.5mm - [id number] Implanted:Qty: 1 on 06/10/2008 at [facility] Right: Shoulder [employer] AR-1927PS F-45# / / [id number] Screw Bio-Swivelock C 4.75x19.1mm - [id number] Implanted:Qty: 1 on 06/10/2008 at [facility] Right: Shoulder [employer] AR-2324BS LC# / / [id number] Screw Bio-Tenodesis 9khc77cc - [id number] Implanted:Qty: 1 on 06/10/2008 at [facility] Right: Shoulder [employer] AR-1680B# / / [id number] Screw Peek Tendoesis 8x12mm - [id number] Implanted:Qty: 1 on 06/10/2008 at [facility] Right: Shoulder [employer] AR-1680PS # / / [id number] Ndl Surefire Dbl Scorpion Implanted:Qty: 1 on 06/10/2008 at [facility] Right: Shoulder [employer] [id number] / / [id number] Description:NDL SUREFIRE DBL [employer] Insurance [facility] MEDICARE PART A HB ONLY [facility] [place] [id number] Advance Directives * DNR (Latest Code Status on File) Date Activated Date Inactivated Comments 07/03/2022 2:57 PM 07/06/2022 3:29 AM Question Answer Comments Code Status Discussion: Reviewed Preferences * Full Code Date Activated Date Inactivated Comments 07/03/2022 1:38 PM 07/03/2022 2:57 PM Question Answer Comments Code Status Discussion: Reviewed Preferences * Full Code Date Activated Date Inactivated Comments 06/10/2008 9:03 AM 06/10/2008 10:13 PM * Full Code Date Activated Date Inactivated Comments 01/26/2005 5:12 AM 01/26/2005 8:42 PM Care Teams Respooler Relationship Specialty Start Date End Date Reynaldo Coombs DO [address] [facility] [place] [address] PCP - General Family Practice 11/17/22 Duncan Curtis III, MD Surgery - Orthopedics 06/20/11
--- NOTE | 2024-10-14 03:15 | CRLHL7_ITS ---
For Patients: As a result of the Century Cures Act, medical imaging exams and procedure reports are released immediately into your electronic medical record. You may view this report before your referring provider. If you have questions, please contact your health care provider. Indication: Cough, chest pain Technique: Two views of the chest Comparison: None Findings/Impression: Mild cardiomegaly and prominent interstitial markings with bibasilar atelectasis. Heart failure and mild volume overload not excluded. No organized consolidation. Dictated by Joe Kasper MD @ 10/14/2024 3:58:46 AM (Electronically Signed)
--- NOTE | 2024-10-14 03:15 | CRLHL7_ITS ---
For Patients: As a result of the Century Cures Act, medical imaging exams and procedure reports are released immediately into your electronic medical record. You may view this report before your referring provider. If you have questions, please contact your health care provider. INDICATION: Left lower quadrant pain TECHNIQUE: CT abdomen and pelvis acquired with 90 cc Isovue 370 IV contrast. COMPARISON: None. FINDINGS: Lower chest: Small bilateral pleural effusions with adjacent atelectasis. Calcified granuloma in the left lower lobe. Mild cardiomegaly. Liver: Unremarkable. Normal in size and attenuation. No suspicious masses. Gallbladder and bile ducts: Unremarkable. No stones or inflammation. No biliary dilatation. Pancreas: Mild atrophy. Spleen: Calcified granulomas. Adrenal glands: Unremarkable. No nodules. Kidneys: Unremarkable. No suspicious masses, stones, or hydronephrosis. GI tract: No obstruction. Colonic diverticulosis without diverticulitis. Mild mucosal hyperenhancement of the 1st and 2nd portion of the duodenum. Normal appendix. Vasculature: Abdominal aorta is normal in caliber. Moderate aortoiliac atherosclerosis. Mesenteric arteries are patent. Lymph nodes: No lymphadenopathy. Peritoneum/Abdominal Wall: Small volume ascites. Mild anasarca. Pelvis: Incomplete distention of the bladder limits evaluation. Bones: Moderate degenerative disease of the spine. Mild levocurvature of the lumbar spine. IMPRESSION: Mild mucosal hyperenhancement of the duodenum can be seen with infectious or inflammatory duodenitis. Ischemic enteritis can also have this appearance, but is less likely considering lack of significant bowel wall thickening or mesenteric artery occlusion. Small bilateral pleural effusions, small volume ascites, and mild anasarca can all be seen with third spacing of fluid. Please note that all CT scans at this facility use dose modulation, iterative reconstruction, and/or weight-based dosing when appropriate to reduce radiation dose to as low as reasonably achievable. Dictated by Marychuy Bacon MD @ 10/14/2024 4:12:36 AM (Electronically Signed)
--- NOTE | 2024-10-14 03:15 | ED.GENADULT ---
HPI - General Adult General Chief complaint: Shortness of Breath/Dyspnea Stated complaint: shortness of breath/stomach pain Time Seen by Provider: 10/14/24 03:00 Source: patient and family Mode of arrival: ambulatory Limitations: no limitations History of Present Illness HPI narrative: 79-year-old male presents to the emergency department with significant other for evaluation of 2 weeks of shortness of breath and 2 days of abdominal pain. Shortness of breath is present at rest, worse with exertion. No chest pain. No trauma or injury. No productive cough or fever. Denies prior history of similar symptoms. He had attributed his symptoms to the poor air quality secondary to the [place] smoke. No history of asthma or chronic lung disease. No history of significant coronary artery disease. Reports that he failed a stress test 2 and half years ago and had an angiogram. He describes that the angiogram showed that he had adequate collateral circulation and no treatment was needed. It sounds like he did not have a stent or bypass surgery and also sounds like he was not recommended to start a statin or any type of other cardiac modification. I do not have those records. He has never had a prior colonoscopy, unsure if he has a history of diverticulosis. Having regular bowel movements, no bloody stools. Reports is past medical history is otherwise benign. Denies major long-term health problems. No prior abdominal surgeries. Has had inguinal hernia repair. Nonsmoker. No prior history of DVT or PE. No long-term medications. Allergy to the tetanus toxoid. ROS is notable for the GI and dyspnea symptoms as above. Otherwise denies times 12 systems. Related Data Previous Rx's ?Medication ?Instructions ?Recorded furosemide 20 mg tablet 20 mg PO DAILY #95 tabs 10/14/24 potassium chloride 10 mEq 10 meq PO DAILY #95 caps 10/14/24 capsule,extended release Allergies Allergy/AdvReac Type Severity Reaction Status Date / Time tetanus and diphtheria Allergy Verified 10/14/24 02:37 toxoids [facility] Social History Smoking Status: Former smoker Do you use any of these nicotine containing products: None Second hand tobacco smoke exposure: No How often do you have a drink containing alcohol: monthly or less How often do you have six or more drinks on one occasion: Never AUDIT-C Alcohol total score: 1 Non-prescribed substance use: denies use Exam Const: Vital Signs, click to edit/add: Vital Signs - 24 hr 10/14/24 02:35 10/14/24 03:27 Temperature 98.2 F Pulse Rate [Right Pulse Oximeter] 89 Respiratory Rate 18 Blood Pressure [Ri ght Upper Arm] 165/89 H Pulse Oximetry 99 99 Oxygen Delivery Me thod Room Air Documenting provider has reviewed patient's vital signs: yes Common normals: no apparent distress and alert General appearance: cooperative and well kempt HENMT: Common normals: normocephalic, moist oral mucous membranes and oropharynx normal Head and scalp: normocephalic Mouth: oral and palatal mucosa normal Eye: Common normals: conjunctivae normal General eye: normal appearance of both eyes Conjunctiva: conjunctiva(e) normal Neck & C-Spine: Common normals: full ROM and no lymphadenopathy Resp: Common normals: normal respiratory effort, no use of accessory muscles and clear to auscultation bilaterally Effort & inspection: able to speak in complete sentences Auscultation: clear to auscultation bilaterally Cardio: Common normals: regular rate and regular rhythm Rate: regular rate Rhythm: regular rhythm Other: 4/6 mid systolic murmur noted. Does not radiate. No gallop. GI: Common normals: Normal to inspection, nondistended, normoactive bowel sounds present, soft to palpation, no hepatosplenomegaly and no masses Palpation: soft and no hepatosplenomegaly Other: Tender to palpation of left lower quadrant with mild guarding. No rebound tenderness. : Common normals: no CVA tenderness Bladder/kidney exam: no CVA tenderness Back & Pelvis: Common normals: no CVA tenderness and thoracic and lumbar spine normal to inspection Extremity: Common normals: normal to inspection, normal capillary refill and no pedal edema Neuro: Common normals: moves all extremities and no focal motor deficits Sensorium/orientation: alert Motor exam: no movement abnormalities noted Psych: Common normals: thought process normal Appearance: well kempt Attitude: engaged Activity/motor behavior: appropriate eye contact Mood and affect: euthymic mood Thought process: normal thought process Insight: insight good Judgement: judgment good Skin: Common normals: no rashes or lesions noted General skin exam: no rashes or lesions noted Course Course ED Course: 79-year-old male with 2 weeks of vague dyspnea now presenting with 2 days of lower abdominal pain. Heart murmur noted on exam. Reported history of coronary artery disease but suspicious that he is not being medically managed, I do not have records for comparison. I am concerned that his primary etiology is actually cardiac. Will placed on school lunch monitor. Obtain cardiac enzymes, BNP, chest x-ray, EKG. I think that the abdominal symptoms are completely separate. But will obtain CT of the abdomen and pelvis which will look for diverticulitis, pancreatitis or other etiologies rebound no pain but will also allow me to better evaluate the aorta. Differential diagnosis for the shortness of breath also includes pulmonary embolism though unlikely due to no hypoxia or tachycardia, heart failure, pneumonia, asthma exacerbation, URI, amongst others. I a suspicion is for underlying cardiac process. Await findings. Reevaluation(s) Time of Reevaluation #1: 05:00 Reevaluation #1: Counseled patient on findings. CT is not suspicious for diverticulitis but does show some diverticulosis which could explain his symptoms. He also has some mild inflammation of the 1st part of the duodenum but no other major abnormalities. Blood work is not suspicious for infection, elevated lactate or other intra-abdominal abnormality. Does show that his BNP is elevated to around 7000, having previously been about a 1000. He also has signs of pulmonary edema though mild on chest x-ray and cardiomegaly which are new from 2 years ago. We spent some time reviewing his previous outpatient echo and previous stress test. He did have some valvular heart disease but preserved ejection fraction 2 years ago. He has had elevated troponins chronically in his previous ED visits and his values today are stable. We do have a repeat value pending in about 10 minutes but I suspect that this will be stable as well. Patient continues not have any chest pain. We spent some time discussing heart failure and I do think that this is the etiology of the shortness of breath. He needs another echo but it does not need to be done emergently. There are no signs of arrhythmia or other electrical heart problem today. We will start him on furosemide 40 mg daily, 1st dose today. He will take that dose for 3 days and then decrease to 20 mg once daily with primary care follow-up in about a week. I recommended that he weigh himself daily and record these values so that it may be easier for him to tell the future if he is getting fluid overloaded. We discussed his symptoms of paroxysmal nocturnal dyspnea and increased nocturia which have likely been building symptoms over the past year or so, but shortness of breath on exertion has only been the past 2 weeks. Lengthy discussion regarding heart failure and plan of care. Patient understands that he will make his primary care follow-up visit for repeat basic metabolic panel and scheduling of the outpatient echo. I do not have a recommendation for aspirin yet, need to see where his EF lands. May require cardiology consult also based on findings. Patient elected to start his 1st dose of the furosemide here in the ED. additional prescriptions sent to pharmacy. Will create addendum if 2nd troponin unexpectedly elevated. Update: Troponin remaining stable. Vital Signs Vital signs: Initial Vital Signs Respiratory Effort Normal, Spontaneous, Non-Labored 10/14/24 02:28 Respiratory Depth Normal 10/14/24 02:28 Respiratory Pattern Normal 10/14/24 02:28 Vital Signs Temperature 98.2 F 10/14/24 02:35 Pulse Rate 89 10/14/24 02:35 Respiratory Rate 18 10/14/24 02:35 Blood Pressure 165/89 H 10/14/24 02:35 Pulse Oximetry 99 10/14/24 02:35 Oxygen Delivery Method Room Air 10/14/24 02:35 Temperature 98.2 F 10/14/24 02:35 Pulse Rate 89 10/14/24 02:35 Respiratory Rate 18 10/14/24 02:35 Blood Pressure 165/89 H 10/14/24 02:35 Pulse Oximetry 99 10/14/24 03:27 Oxygen Delivery Method Room Air 10/14/24 02:35 Medications Administered Medications: Generic Name Dose Route Start Last Admin Trade Name Freq PRN Reason Stop Dose Admin Furosemide 40 mg 10/14/24 05:03 10/14/24 05:17 Furosemide 40 Mg Tablet PO 10/14/24 05:04 40 mg ONCE ONE Administration Potassium Chloride 20 meq 10/14/24 05:03 10/14/24 05:14 Potassium Chloride 10 Meq Capsule Er PO 10/14/24 05:04 20 meq ONCE ONE Administration Medical Decision Making Lab Data Lab results reviewed: Yes I reviewed the patient's lab results Lab results narrative: Troponin is elevated but consistent with prior chronic elevation values. Electrolytes stable, good renal function. Normal hemoglobin, no leukocytosis. Inflammatory markers negative. Urinalysis reassuring. BNP elevated, had previously been around a 1000, now 7000. This is likely a function of his worsening heart failure. Labs: Lab Results 10/14/24 10/14/24 10/14/24 Range/Units 03:20 03:37 05:20 WBC 6.54 (4.50-11.00) K/uL RBC 4.12 L (4.30-5.90) m/uL Hgb 14.1 (13.5-17.5) gm/dL Hct 42.1 (37.0-53.0) % MCV 102 H (80-100) fL MCH 34 (26-34) pg MCHC 34 (32-36) gm/dL RDW Coeff of Rosalina 14.9 (11.5-15.5) % Plt Count 147 (140-440) K/uL Neut % (Auto) 64.3 (42.0-72.0) % Lymph % (Auto) 24.5 (20-44) % Maverick % (Auto) 8.7 (0.0-11.0) % Eos % (Auto) 1.2 (0.0-7.0) % Baso % (Auto) 1.1 (0.0-3.0) % Neut # (Auto) 4.21 (1.7-7.0) K/uL Lymph # (Auto) 1.60 (0.90-2.90) K/uL Maverick # (Auto) 0.60 (0.00-0.90) K/UL Eos # (Auto) 0.08 (0.00-0.50) K/uL Baso # (Auto) 0.07 (0.00-0.30) K/uL Abs Immat Gran (auto) 0.01 (0.00-0.30) K/uL Imm/Tot Granulo (auto) 0.2 % Sodium 138 (135-149) mmol/L Potassium 4.7 (3.6-5.1) mmol/L Chloride 110 (96-114) mmol/L Carbon Dioxide 20 (20-32) mmol/L Anion Gap 8 (7-15) mEq/L BUN 23 (7-30) mg/dL Creatinine 0.8 (0.5-1.5) mg/dL Estimated Creat Clear 63.59 Estimated GFR 89 ml/min Glucose 88 (60-115) mg/dL Lactate 1.1 (0.5-1.9) mmol/L Calcium 8.9 (8.4-10.6) mg/dL Total Bilirubin 1.8 H (0.1-1.5) mg/dL AST 34 (12-35) U/L ALT 50 (4-50) U/L Alkaline Phosphatase 117 (40-150) U/L Troponin I 0.09 H* (0.01-0.04) ng/mL C-Reactive Protein < 0.5 L (0.5-1.0) mg/dL NT-Pro-B Natriuret Pep 7380 H (See Note) pg/mL Total Protein 6.5 (6.0-8.3) g/dL Albumin 3.8 (3.3-5.0) g/dL Lipase 34 (23-300) U/L Urine Color Yellow (Yellow) Urine Appearance Clear (Clear) Urine pH 5.5 (5.0-8.5) Ur Specific Moody 1.015 (1.000-1.030) Urine Protein Negative (Negative) Urine Glucose (UA) Negative (Negative) Urine Ketones 1+ A (Negative) Urine Blood Negative (Negative) Urine Nitrite Negative (Negative) Urine Bilirubin Negative (Negative) Urine Urobilinogen 0.2 (0.2-1.0) Ur Leukocyte Esterase Negative (Negative) Urine RBC 0-2 (0-2) Urine WBC 0-2 (0-5) Ur Squamous Epith Cells Few (None-Few) Urine Bacteria None (None) POC Creatinine 0.9 (0.6-1.3) mg/dl POC Troponin I 0.09 H 0.10 H (0.01-0.04) ng/ml Imaging Data Chest x-ray: My impression: Mild pulmonary edema and cardiomegaly. No infiltrate Radiologist's impression: Findings/Impression: Mild cardiomegaly and prominent interstitial markings with bibasilar atelectasis. Heart failure and mild volume overload not excluded. No organized consolidation. Dictated by Joe Kasper MD @ 10/14/2024 3:58:[address] scan - abdomen: Attestation: I have reviewed the pertinent imaging results. My impression: No obvious diverticulitis. Some mild inflammation of the 1st part of the small intestine but no signs of perforation or pancreatitis. Gallbladder looking structurally normal. There is a little bit of ascites which correlates with the heart failure that we are seeing as his primary presenting feature Radiologist's impression: IMPRESSION: Mild mucosal hyperenhancement of the duodenum can be seen with infectious or inflammatory duodenitis. Ischemic enteritis can also have this appearance, but is less likely considering lack of significant bowel wall thickening or mesenteric artery occlusion. Small bilateral pleural effusions, small volume ascites, and mild anasarca can all be seen with third spacing of fluid. Discharge Plan Discharge Clinical Impression: Congestive heart failure Patient Disposition: Home, Self-Care Condition: Stable Instructions: Heart Failure (DC) Additional Instructions: As we discussed, your shortness of breath is because your heart has gradually gotten more weak over the past 2 years. There are signs of fluid backing up into your lungs slightly. The echo which is the ultrasound of your heart that was performed 2 years ago does show mild damage to 2 of your heart valves, these are consistent with the ones that I can hear abnormally on your exam today. There are no signs of a heart attack or blockage of blood flow to the coronary arteries today. There are no signs of any electrical problems in the heart. Structural heart disease as we discussed needs more of a workup. You need to make a follow-up appointment with your primary care provider right away to check in on how the new treatment is going and also to schedule another echo which is the ultrasound of your heart. Based on this information, you may need to see Cardiology again also. For treatment, we will start a water pill, also known as a diuretic to help relieve some of the fluid back up in your lungs by use of tracking the kidneys into removing more than usual of this. You will take 2 pills once daily for the 1st 2 days, then decrease to once daily. Any time that we start a water pill, we also half to start some supplemental potassium. Therefore, you will have 2 prescriptions to greens picker. At this point, your heart failure is very mild and treatable but there may be more options available to manage this that we will learn based on the echo. I do recommend that you get a scale and weigh yourself daily. This will help you understand if you start to put on too much fluid again. Record these levels and bring them to your doctor visits. Dosage of the water pills may need to be adjusted based on your initial response. As far as the abdominal pain, your CT scan shows that you have some diverticulosis which is a mild irritation of the colon wall without any diverticulitis. Meaning that there is no infection or treatment needed. This should resolve on its own in a few days. It is okay to use Tylenol and/or ibuprofen as needed for mild discomfort. You do not need to make changes to your diet for this. Previous dietary advice has found to be of little value. If you start running high fever, have severe persistent symptoms, bloody stools or severe weakness, you should return to the emergency department. Activity Level: Activity as Tolerated Prescriptions: New furosemide 20 mg tablet 20 mg PO DAILY Qty: 95 1RF Rx Instructions: 2 pills once daily for the 1st 2 days, then 1 pill daily. potassium chloride 10 mEq capsule, extended release 10 meq PO DAILY Qty: 95 3RF Follow Up/Referrals: Reynaldo Coombs DO [Referring, Family Practice] Stand Alone Forms: [employer] Info Instructions
[2024-10-14 03:29] LABS: Lactate Sepsis w/Reflex* 1.1 mmol/L (0.5-1.9)
[2024-10-14 03:31] LABS: Hematocrit 42.1 % (37.0-53.0); Hemoglobin* 14.1 gm/dL (13.5-17.5); Immature Granulocytes Abs Auto 0.01 K/uL (0.00-0.30); Immature Granulocytes Pct Auto 0.2 %; Lymphocytes Absolute Auto 1.60 K/uL (0.90-2.90); Mean Corpuscular HGB Conc 34 gm/dL (32-36); Mean Corpuscular Hemoglobin 34 pg (26-34); Mean Corpuscular Volume 102 fL (80-100); RDW Coefficient of Variation % 14.9 % (11.5-15.5); Red Blood Count 4.12 m/uL (4.30-5.90); Slide Review Reflex No; White Blood Count* 6.54 K/uL (4.50-11.00)
[2024-10-14 03:41] LABS: Creatinine, Point-of-Care* 0.9 mg/dl (0.6-1.3); Troponin, Point-of-Care* 0.09 ng/ml (0.01-0.04)
[2024-10-14 03:41] LABS: Appearance Urine Clear (Clear)
[2024-10-14 03:46] LABS: Albumin* 3.8 g/dL (3.3-5.0); Chloride* 110 mmol/L (96-114); Sodium* 138 mmol/L (135-149)
[2024-10-14 03:47] LABS: Potassium* 4.7 mmol/L (3.6-5.1)
[2024-10-14 03:49] LABS: Alanine Aminotransferase* 50 U/L (4-50); Aspartate Amino Transferase* 34 U/L (12-35); Blood Urea Nitrogen* 23 mg/dL (7-30); Creatinine* 0.8 mg/dL (0.5-1.5); Est. Creatinine Clearance* 63.59; Estimated Glomerular Filt Rate 89 ml/min
[2024-10-14 03:50] LABS: Alkaline Phosphatase* 117 U/L (40-150); Anion Gap 8 mEq/L (7-15); Bilirubin Total* 1.8 mg/dL (0.1-1.5); Calcium* 8.9 mg/dL (8.4-10.6); Carbon Dioxide* 20 mmol/L (20-32); Glucose* 88 mg/dL (60-115); Total Protein* 6.5 g/dL (6.0-8.3)
[2024-10-14 03:59] LABS: NT Pro B Type NatriureticPept* 7380 pg/mL (See Note)
[2024-10-14] MEDS: POTASSIUM CHLORIDE 10 MEQ CAPSULE ER 20 MEQ PO (05:14)
[2024-10-14] MEDS: FUROSEMIDE 40 MG TABLET PO (05:17)
[2024-10-14 05:33] LABS: Troponin, Point-of-Care* 0.10 ng/ml (0.01-0.04)
== END 2024-10-14 05:56 | disposition home or self-care (01) ==
PROVIDERS: Emergency Provider Family Medicine; PCP Family Medicine
DX: R10.9 Unspecified abdominal pain (principal)
CPT/HCPCS: 36415; 71046; 74177; 80053; 81001; 82565; 83605; 83690; 83880; 84484; 85025; 86140; 93005; 94761; 99284; 99285; A9270; Q9967